=== PATIENT | female | born 1950 | race Caucasian/White ===

== ENCOUNTER → 2018-12-06 | Outpatient (CLI) | payer MEDICARE ==
--- NOTE | 2018-12-06 10:55 | US ---
EXAMINATION TYPE: US carotid duplex BILAT DATE OF EXAM: 12/06/2018 COMPARISON: NONE CLINICAL HISTORY: E78.5 HYPERLIPIDEMEA. no h/o stroke EXAM MEASUREMENTS: RIGHT: Peak Systolic Velocity (PSV) cm/sec ----- Right CCA: 64.3 ----- Right ICA: 87.6 ----- Right ECA: 90.2 ICA/CCA ratio: 1.4 RIGHT: End Diastole cm/sec ----- Right CCA: 19.7 ----- Right ICA: 36.9 ----- Right ECA: 16.8 LEFT: Peak Systolic Velocity (PSV) cm/sec ----- Left CCA: 64.0 ----- Left ICA: 73.6 ----- Left ECA: 65.7 ICA/CCA ratio: 1.2 LEFT: End Diastole cm/sec ----- Left CCA: 25.6 ----- Left ICA: 24.7 ----- Left ECA: 17.7 VERTEBRALS (direction of flow): Right Vertebral: Antegrade Left Vertebral: Antegrade Rhythm: Normal Mild homogeneous plaque with no significant stenosis seen. IMPRESSION: Mild degree of grayscale atheromatous plaquing with no sonographically evident hemodynam ically significant stenosis within either visualized carotid arterial system. Criteria for Assigning % of Stenosis / Diameter reduction (Estimation based on the indirect measurements of the internal carotid artery velocities (ICA PSV). 1. Normal (no stenosis)=ICA PSV < 125 cm/s: ratio < 2.0: ICA EDV<40 cm/s. 2. Less than 50% stenosis=ICA PSV < 125 cm/s: ratio < 2.0: ICA EDV<40 cm/s. 3. 50 to 69% stenosis=ICA PSV of 125 to 230 cm/s: ration 2.0 ? 4.0: ICA EDV 40-100 cm/s. 4. Greater than 70% stenosis to near occlusion= ICA PSV > 230 cm/s: ratio > 4.0: ICA EDV > 100 cm/s. 5. Near occlusion= ICA PSV velocities may be low or undetectable: variable ratio and ICA EDV. 6. Total occlusion=unable to detect flow.
== END | disposition home or self-care (01) ==
LOC: RADUSWWP 09:54
PROVIDERS: ATTEND Family Medicine
DX: I65.23 Occlusion and stenosis of bilateral carotid arteries (principal); E78.5 Hyperlipidemia, unspecified
CPT/HCPCS: 93880

== ENCOUNTER → 2019-03-13 | Outpatient (CLI) | payer MEDICARE ==
[2019-03-13 19:18] LABS: Thyroid Peroxidase Antibodies 36.1 U/mL (0.0-60.0)
[2019-03-13 20:00] LABS: ACTH 22.8 pg/mL (0.00-45.99)
[2019-03-13 20:05] LABS: T4, Free (Free Thyroxine) 0.8 ng/dL (0.80-1.80)
== END | disposition home or self-care (01) ==
LOC: LABWHC1 10:52
PROVIDERS: ATTEND Internal Medicine Endocrinology, Diabetes & Metabolism
DX: R53.83 Other fatigue (principal)
CPT/HCPCS: 36415; 82024; 82533; 82607; 84146; 84439; 84443; 86376

== ENCOUNTER → 2020-07-23 | Outpatient (CLI) | payer MEDICARE ==
--- NOTE | 2020-07-23 14:22 | CT ---
EXAMINATION TYPE: CT abdomen pelvis wo con DATE OF EXAM: 07/23/2020 COMPARISON: None HISTORY: Abdominal pain and distention CT DLP: 996 mGycm Automated exposure control for dose reduction was used. TECHNIQUE: Helical acquisition of images was performed from the lung bases through the pelvis. CONTRAST: Performed without Oral Contrast and without intravenous contrast. FINDINGS: LUNG BASES: No pleural or pericardial effusion. Cardiac size normal. LIVER: 1.8 cm simple hepatic cyst of the right inferior lobe. Normal attenuation. BILIARY SYSTEM: Status post cholecystectomy. No intrahepatic or extrahepatic biliary ductal dilatatio n. PANCREAS: No peripancreatic inflammation. SPLEEN: Not enlarged. ADRENALS: No nodule. KIDNEYS: There is mild right hydronephrosis and right extrarenal pelvis. No left hydronephrosis. No h ydroureter bilaterally. BOWEL: Small hiatal hernia. No evidence of obstruction, thickening, or inflammation. PERITONEUM: No free air is visualized. No free fluid. Small fat-containing umbilical hernia. ADENOPATHY: No lymphadenopathy. PELVIS: Status post hysterectomy. There is prolapsed bladder up to 3.7 cm inferior to the pubococcyge al line. VASCULATURE: No abdominal aortic aneurysm. Mild calcified atherosclerotic disease. MUSCULOSKELETAL: Degenerative changes of the spine. IMPRESSION: 1. Cystocele, with up to 3.7 cm of urinary bladder prolapse below the pubococcygeal line. 2. Mild right hydronephrosis, however with no hydroureter to suggest bladder outlet obstruction due to the cystocele.
== END | disposition home or self-care (01) ==
LOC: RADCTMAIN 13:27
PROVIDERS: ATTEND Family Medicine
DX: N81.10 Cystocele, unspecified (principal); N13.30 Unspecified hydronephrosis
CPT/HCPCS: 74176

== ENCOUNTER → 2021-04-06 | Outpatient (CLI) | payer MEDICARE ==
[2021-04-07 03:39] LABS: Thyroid Peroxidase Antibodies 35.9 U/mL (0.0-60.0)
[2021-04-07 04:29] LABS: Prolactin 4.2 ng/mL (2.8-29.2)
[2021-04-07 04:35] LABS: T4, Free (Free Thyroxine) 0.6 ng/dL (0.80-1.80)
[2021-04-07 05:50] LABS: ACTH 33.6 pg/mL (0.00-45.99)
== END | disposition home or self-care (01) ==
LOC: LABWHC1 09:16
PROVIDERS: ATTEND Internal Medicine Endocrinology, Diabetes & Metabolism
DX: R53.83 Other fatigue (principal)
CPT/HCPCS: 36415; 82024; 82533; 82607; 84146; 84439; 84443; 86376

== ENCOUNTER → 2022-07-10 | Outpatient (CLI) | payer MEDICARE ==
[2022-07-10 19:50] LABS: T4, Free (Free Thyroxine) 0.77 ng/dL (0.800-1.800)
== END | disposition home or self-care (01) ==
LOC: LABWHC1 10:46
PROVIDERS: ATTEND Internal Medicine Endocrinology, Diabetes & Metabolism
DX: E03.8 Other specified hypothyroidism (principal)
CPT/HCPCS: 36415; 84439; 84443

== ENCOUNTER → 2023-05-04 | Outpatient (CLI) | payer MEDICARE ==
--- NOTE | 2023-05-04 09:48 | CT ---
EXAMINATION TYPE: CT abdomen pelvis wo con DATE OF EXAM: 05/04/2023 COMPARISON: 07/23/2020 HISTORY: 73-year-old female R74.8, Bloating CT DLP: 550.9 mGycm. Automated exposure control for dose reduction was used. TECHNIQUE: Contiguous axial scanning of the abdomen and pelvis without IV contrast. Coronal and sagit carol reconstructions performed. FINDINGS: Heart normal size without pericardial effusion. Lung bases clear without pleural effusion. Tiny hiatal hernia. Redemonstrated 1.6 cm cyst lower right liver lobe. Cholecystectomy clips. Unchanged 2.9 cm parapelvic cyst right kidney and focal cortical contour nodularity medial lower pole right kidney measuring 1.3 cm, likely contour lobulation. Redemonstrated small 2.3 cm fatty umbilical hernia. Punctate 2 mm nonobstructive left renal calculus. Adrenal glands, spleen, and pancreas within normal limits. No dilated small bowel, free fluid, free air. No mesenteric or retroperitoneal lymphadenopathy. Appendix not clearly identified. No secondary findings of acute appendicitis in the right lower quadr ant. Scattered [id number] stool. No pericolonic inflammatory change. Bladder nondistended. There is pelvic floor relaxation. Uterus surgically absent. Ovaries not clearly delineated from adjacent bowel loops. No abnormal fluid collection in the pelvis or pelvic lymphaden opathy. Bones: Moderate degenerative disc disease mid to lower lumbar spine with hypertrophic facet arthropat hy and grade 1 anterolisthesis L5-S1. IMPRESSION: 1. Tiny hiatal hernia and a small fatty umbilical hernia redemonstrated. 2. Punctate 2 mm nonobstructive left renal calculus. 3. Mild to moderate stool burden. 4. Pelvic floor relaxation with redemonstrated small cystocele. 5. Status post hysterectomy an cholecystectomy.
== END | disposition home or self-care (01) ==
LOC: RADCTMAIN 09:18
PROVIDERS: ATTEND Nurse Practitioner Adult Health
DX: N20.0 Calculus of kidney (principal); K44.9 Diaphragmatic hernia without obstruction or gangrene; K42.9 Umbilical hernia without obstruction or gangrene; N99.3 Prolapse of vaginal vault after hysterectomy; Z90.49 Acquired absence of other specified parts of digestive tract; R74.8 Abnormal levels of other serum enzymes; Z90.710 Acquired absence of both cervix and uterus
CPT/HCPCS: 74176

== ENCOUNTER → 2023-06-26 | Outpatient (CLI) | payer MEDICARE | END | disposition home or self-care (01) | LOC: LABWHC1 11:45 | PROVIDERS: ATTEND Internal Medicine Endocrinology, Diabetes & Metabolism | DX: E03.8 Other specified hypothyroidism (principal) | CPT/HCPCS: 36415; 84443 ==

== ENCOUNTER → 2023-07-11 | Outpatient (CLI) | payer MEDICARE ==
[2023-07-12 11:23] LABS: ACTH 34.2 pg/mL (0.00-45.99)
== END | disposition home or self-care (01) ==
LOC: LABWHC1 12:14
PROVIDERS: ATTEND Internal Medicine Endocrinology, Diabetes & Metabolism
DX: E03.8 Other specified hypothyroidism (principal); R63.5 Abnormal weight gain
CPT/HCPCS: 36415; 82024; 82533; 83525; 84305

== ENCOUNTER 2023-08-01 08:40 | Day surgery (SDC) | payer MEDICARE ==
[~2023-08-01 08:40] MED LIST: LIDOCAINE 1% (10MG/ML) FOR IV START INTRADERMA PRN
[2023-08-01 09:14] VITALS: RESP 16; TEMP 97.5
[2023-08-01] MEDS: LACTATED RINGERS 1,000 ML IV SCH ×2 (09:18→09:25)
[2023-08-01] MEDS ORDERED: PROPOFOL 10 MG/ML 20 ML VIAL IV ONE (09:24)
[2023-08-01] MEDS ORDERED: LIDOCAINE 2% INJ 20 MG/ML (2 ML VIAL) ONE (09:24)
--- NOTE | 2023-08-01 09:48 | P.PCN ---
Date of Procedure: 08/01/23 Procedure(s) Performed: BRIEF HISTORY: Patient is a 73-year-old pleasant white female scheduled for an elective colonoscopy as a part of screening for colon cancer. PROCEDURE PERFORMED: Colonoscopy With snare polyp rectum PREOPERATIVE DIAGNOSIS: Screening for colon cancer. IV sedation per Anesthesia. PROCEDURE: After informed consent was obtained, the patient, was brought into the endoscopy unit. IV sedation was administered by Anesthesia under continuous monitoring. Digital rectal examination was normal. Initially the Olympus CF-160 flexible video colonoscope was then inserted in the rectum, gradually advanced into the cecum without any difficulty. Careful examination was performed as the scope was gradually being withdrawn. Ileocecal valve and the appendiceal orifice were visualized and appeared normal. Prep was excellent. Mucosa of the cecum, appeared normal. In the ascending colon there was a 5 mm polyp that was removed by snare polypectomy. Rest of the ascending colon, transverse colon, descending colon, sigmoid colon, and rectum appeared normal. Retroflexion was performed in the rectum and small internal hemorrhoidswere seen. The patient tolerated the procedure well. IMPRESSION: 5 mm ascending colon polyp status post polypectomy Small internal hemorrhoids RECOMMENDATIONS: Findings of this examination were discussed with the patient as well as a family. She was advised to have a repeat screening colonoscopy in 5-10 years based on the biopsy results
[2023-08-01 10:06] VITALS: BP 137/82; PULSE 81
== END 2023-08-01 10:24 | disposition home or self-care (01) ==
LOC: ORWHC2ENDO 08:40
PROVIDERS: ATTEND Internal Medicine Gastroenterology
DX: Z12.11 Encounter for screening for malignant neoplasm of colon (principal); D12.2 Benign neoplasm of ascending colon; K64.8 Other hemorrhoids; E78.5 Hyperlipidemia, unspecified; K21.9 Gastro-esophageal reflux disease without esophagitis; M19.90 Unspecified osteoarthritis, unspecified site; E07.9 Disorder of thyroid, unspecified; Z79.890 Hormone replacement therapy; Z79.899 Other long term (current) drug therapy; Z98.890 Other specified postprocedural states
CPT/HCPCS: 88305; 45385; J2704; J2001

== ENCOUNTER → 2023-08-16 | Outpatient (CLI) | payer MEDICARE ==
--- NOTE | 2023-08-16 11:29 | MM ---
Reason for Exam: Screening (asymptomatic). Last mammogram was performed 1 year(s) and 1 month(s) ago. Patient History: Menarche at age 14. First Full-Term at age 32. Late child-bearing (after 32). Postmenopausal. Risk Values: Lulu 5 year model risk: 2.4%. NCI Lifetime model risk: 6.6%. Prior Study Comparison: 06/15/2020 Bilateral MG 3D screening mammo w/cad, [facility]. 06/30/2021 Bilateral MG 3D screening mammo w/cad, [facility]. 07/18/2022 Bilateral MG 3D screening mammo w/cad, [facility]. Tissue Density: The breast tissue is heterogeneously dense. This may lower the sensitivity of mammography. Findings: Analyzed By CAD. There is no suspicious group of microcalcifications or new suspicious mass in either breast. Benign calcifications bilaterally. Overall Assessment: Benign, BI-RAD 2 Management: Screening Mammogram of both breasts in 1 year. . Patient should continue monthly self-breast exams. A clinical breast exam by your physician is recommended on an annual basis. This exam should not preclude additional follow-up of suspicious palpable abnormalities. Note on Lulu scores and lifetime risk: 1. A Lulu score greater than 3% is considered moderate risk. If this is the case, consider specialist referral to assess eligibility for a risk reducing agent. 2. If overall lifetime risk for the development of breast cancer is 20% or higher, the patient may qualify for future screening with alternating mammogram and breast MRI. Electronically signed and approved by: Yehuda Monet M.D. Radiologis
== END | disposition home or self-care (01) ==
LOC: RADMAMWWP 06:47
PROVIDERS: ATTEND Family Medicine
DX: Z12.31 Encounter for screening mammogram for malignant neoplasm of breast (principal); Z78.0 Asymptomatic menopausal state
CPT/HCPCS: 77063; 77067

== ENCOUNTER → 2023-10-31 | Outpatient (CLI) | payer MEDICARE | END | disposition home or self-care (01) | LOC: LABWHC1 07:53 | PROVIDERS: ATTEND Internal Medicine Endocrinology, Diabetes & Metabolism | DX: E03.8 Other specified hypothyroidism (principal) | CPT/HCPCS: 36415; 84443 ==

== ENCOUNTER → 2024-04-28 | Outpatient (CLI) | payer MEDICARE | END | disposition home or self-care (01) | LOC: LABWHC1 11:35 | PROVIDERS: ATTEND Internal Medicine Endocrinology, Diabetes & Metabolism | DX: E03.8 Other specified hypothyroidism (principal) | CPT/HCPCS: 36415; 84443 ==

== ENCOUNTER → 2024-05-12 | Outpatient (CLI) | payer MEDICARE | END | disposition home or self-care (01) | LOC: LABWHC1 11:19 | PROVIDERS: ATTEND Internal Medicine Endocrinology, Diabetes & Metabolism | DX: E03.8 Other specified hypothyroidism (principal); E66.9 Obesity, unspecified; Z68.30 Body mass index [BMI] 30.0-30.9, adult | CPT/HCPCS: 36415; 83036; 84443 ==

== ENCOUNTER → 2024-08-18 | Outpatient (CLI) | payer MEDICARE ==
--- NOTE | 2024-08-24 12:33 | MM ---
Reason for Exam: Screening (asymptomatic). Last screening mammogram was performed 12 month(s) ago. Patient History: Menarche at age 14. First Full-Term at age 32. Late child-bearing (after 32). Postmenopausal. Risk Values: Lulu 5 year model risk: 2.4%. NCI Lifetime model risk: 6.3%. Prior Study Comparison: 06/30/2021 Bilateral MG 3D screening mammo w/cad, [facility]. 07/18/2022 Bilateral MG 3D screening mammo w/cad, [facility]. 08/16/2023 Bilateral MG 3D screening mammo w/cad, [facility]. Tissue Density: The breasts are heterogeneously dense, which may obscure small masses. Findings: Analyzed By CAD. The pattern is symmetrical. No significant interval change is evident. No suspicious groups of microcalcifications, spiculated or lobular masses, architectural distortion or other secondary signs of malignancy are mammographically apparent. Overall Assessment: Benign, BI-RAD 2 Management: Screening Mammogram of both breasts in 1 year. A negative mammogram report should not preclude additional follow up of suspicious palpable abnormalities. Patient should continue monthly self breast exam. A clinical breast exam by your physician is recommended on an annual basis and results should be correlated with mammographic findings. Note on Lulu scores and lifetime risk: 1. A Lulu score greater than 3% is considered moderate risk. If this is the case, consider specialist referral to assess eligibility for a risk reducing agent. 2. If overall lifetime risk for the development of breast cancer is 20% or higher, the patient may qualify for future screening with alternating mammogram and breast MRI. [facility], , 08/24/2024 12:30 PM. Electronically signed and approved by: Mc Culver D.O. Radiologis
== END | disposition home or self-care (01) ==
LOC: RADMAMWWP 08:00
PROVIDERS: ATTEND Family Medicine
DX: Z12.31 Encounter for screening mammogram for malignant neoplasm of breast
CPT/HCPCS: 77063; 77067

== ENCOUNTER → 2024-11-03 | Outpatient (CLI) | payer MEDICARE | END | disposition home or self-care (01) | LOC: LABWHC1 11:26 | PROVIDERS: ATTEND Internal Medicine Endocrinology, Diabetes & Metabolism | DX: E03.8 Other specified hypothyroidism (principal) | CPT/HCPCS: 36415; 84443 ==

== ENCOUNTER → 2025-02-03 | Outpatient (CLI) | payer MEDICARE | END | disposition home or self-care (01) | LOC: LABWHC1 14:51 | PROVIDERS: ATTEND Internal Medicine Endocrinology, Diabetes & Metabolism | DX: E03.8 Other specified hypothyroidism (principal); E88.819 Insulin resistance, unspecified | CPT/HCPCS: 36415; 83036; 84443 ==